=== PATIENT | female | born 1985 | race Caucasian/White ===

== ENCOUNTER 2021-09-09 03:32 | Emergency (ER) | payer OTHER, SELFPAY ==
--- NOTE | 2021-09-09 03:56 | PC.NURSE ---
0330 Patient arrives via EMS in cardiac arrest. Patient has IO in place in left tibia, with compressions performed by laureano device. Patient is also intubated with a size 7 tube secured at 23. Patient was given 4 rounds of epi en route. Patient connected to monitor and pulse check, no pulse PEA. Patient was given epi at 0334, 1mg of atropine at 0335, 1 amp of bicarb at 0335. ERP performed ultrasound of heart, no cardiac activity noted, compressions resumed. 0337 20g IV placed in left AC and 1mg epi given. 0038 1amp bicarb given and arrives at bedside, ERP speaking with family. 0340 1mg epi given. 0341 pulse check, no pulse PEA, no cardiac movement noted on bedside ultrasound. 0342 ERP calls time of .
--- NOTE | 2021-09-09 03:57 | ED_ITS ---
HPI - General Adult General Chief complaint: Cardiac Arrest/CPR Stated complaint: FULL ARREST History of Present Illness HPI narrative: Patient is a 36-year-old female that presents the emergency department with chief complaint of cardiac arrest. The patient has history of hyperemesis during her current and is about 10 weeks . The patient has had multiple bouts of nausea and vomiting has had difficulty keeping fluids down has been very weak the patient this evening fell at home was initially blue per the 's report the patient had dilated pupils at that time but then started to mumble a little bit. When EMS arrived the patient lost pulse in the back of the ambulance and the patient was intubated and ACLS protocols were started they had approximately 15-minute transport time to the emergency department of which the patient arrived in full cardiac arrest the patient at that time had dilated pupils was unresponsive with a agonal PEA rhythm. Related Data Allergies Allergy/AdvReac Type Severity Reaction Status Date / Time No Known Allergies Verified 11/26/09 08:31 Review of Systems Review of Systems: ROS unobtainable: Yes unobtainable due to medical condition [facility] Family History Family History (Updated 07/16/17 @ 12:12 by DOCTOR UNKNOWN) Father Family history of cardiovascular disease Comments Patient is a history of hyperemesis gravidarum Exam Narrative: GENERAL: Ill-appearing, unresponsive HEAD: Normocephalic, atraumatic. EYES: Pupils fixed and dilated . ENT: Nares clear, no rhinorrhea or epistaxis. Mucous membranes moist. NECK: Supple. CHEST: Clear to auscultation with bag valve and elation. HEART: Absent pulses without compressions. ABDOMEN: Soft, nontender, nondistended, normal active bowel sounds. EXTREMITIES: No signs of trauma SKIN: Cool pale NEURO: Unresponsive. PSYCH: Unable to obtain. Course Course Emergency Course: ACLS protocols were continued without success The patient was pronounced at 3:42 AM Procedures Other Procedure Procedure 1: Other Procedure: Bedside ultrasound for cardiac activity showed no evidence of cardiac activity Procedure 2: Other Procedure: Abdominal ultrasound There is an intrauterine of below viable age Discharge Plan Discharge Clinical Impression: Cardiac arrest Patient Disposition: Condition: Follow-up/Referrals: UNKNOWN,DOCTOR [Primary Care Provider] - Time of Disposition: 03:42
--- NOTE | 2021-09-09 04:19 | PC.NURSE ---
Network Infrastructure Architect arrives at bedside.
--- NOTE | 2021-09-09 05:57 | PC.NURSE ---
Family at bedside.
== END 2021-09-09 07:07 | disposition expired ==
PROVIDERS: Emergency Provider Emergency Medicine
DX: O99.411 Diseases of the circulatory system complicating pregnancy, first trimester (principal); I46.9 Cardiac arrest, cause unspecified; O21.0 Mild hyperemesis gravidarum; Z3A.10 10 weeks gestation of pregnancy
CPT/HCPCS: 92950; 99285; J0171; J0461; J2310